=== PATIENT | male | born 1985 | race Caucasian/White ===

== ENCOUNTER 2023-08-13 17:06 | Emergency (ER) | payer OTHER, BC ==
[~2023-08-13] VITALS: Ht 172.7 cm; Wt 87.1 kg
[2023-08-13] MEDS ORDERED: AMOX-CLAV 875-1 EACH PO (19:59)
== END 2023-08-13 20:15 | disposition home or self-care (01) ==
LOC: ED 17:06
DX: S05.31XA Ocular laceration without prolapse or loss of intraocular tissue, right eye, initial encounter (principal); S01.411A Laceration without foreign body of right cheek and temporomandibular area, initial encounter; S09.90XA Unspecified injury of head, initial encounter; J32.9 Chronic sinusitis, unspecified; F90.9 Attention-deficit hyperactivity disorder, unspecified type; V29.99XA Rider (driver) (passenger) of other motorcycle injured in unspecified traffic accident, initial encounter; Y93.55 Activity, bike riding; Y92.410 Unspecified street and highway as the place of occurrence of the external cause; Y99.8 Other external cause status